=== PATIENT | female | born 1970 | race Caucasian/White ===

== ENCOUNTER → 2020-12-31 | Outpatient (CLI) | payer MEDICAID | LOC: COL.RAD 07:30 | DX: R94.5 Abnormal results of liver function studies (principal) ==

== ENCOUNTER → 2021-01-15 | Outpatient (CLI) | payer MEDICAID | LOC: MC.RAD 11:41 | DX: Z12.31 Encounter for screening mammogram for malignant neoplasm of breast (principal); N63.20 Unspecified lump in the left breast, unspecified quadrant ==

== ENCOUNTER → 2021-01-27 | Outpatient (CLI) | payer MEDICAID | LOC: MC.RAD 13:47 | DX: N63.11 Unspecified lump in the right breast, upper outer quadrant (principal) ==

== ENCOUNTER → 2021-07-30 | Outpatient (CLI) | payer MEDICAID | LOC: MC.RAD 08:22 | DX: N60.01 Solitary cyst of right breast (principal) ==

== ENCOUNTER → 2021-08-05 | Outpatient (CLI) | payer MEDICAID | LOC: MC.RAD 11:18 | DX: Z12.31 Encounter for screening mammogram for malignant neoplasm of breast (principal); Z01.818 Encounter for other preprocedural examination ==

== ENCOUNTER → 2022-01-26 | Outpatient (CLI) | payer OTHER | LOC: COL.RAD 15:00 | DX: R10.9 Unspecified abdominal pain (principal) ==

== ENCOUNTER 2023-12-13 22:52 | Emergency (ER) | payer SELFPAY ==
[~2023-12-13] VITALS: Ht 175.3 cm; Wt 84.1 kg
[2023-12-13 23:01] VITALS: TEMP 98.3
[2023-12-14] MEDS ORDERED: Home HYDROcodone/Acetaminophen 5/325 MG #4 TABS/PACK PO ONE (00:15)
[2023-12-14 00:38] VITALS: BP 155/92; PULSE 66
== END 2023-12-14 00:38 | disposition home or self-care (01) ==
LOC: COL.ER 22:52
DX: S50.12XA Contusion of left forearm, initial encounter (principal); V89.2XXA Person injured in unspecified motor-vehicle accident, traffic, initial encounter; Y92.410 Unspecified street and highway as the place of occurrence of the external cause

== ENCOUNTER 2023-12-18 15:12 | Emergency (ER) | payer OTHER ==
[~2023-12-18] VITALS: Ht 175.3 cm; Wt 81.8 kg
[2023-12-18] MEDS ORDERED: Ketorolac 60 MG/2 ML VIAL IM ONE (16:30)
[2023-12-18] MEDS ORDERED: Cyclobenzaprine 10 MG TAB PO ONE (16:45)
[2023-12-18] MEDS ORDERED: FLEXERIL 1010 MG/TAB PO (17:18)
[2023-12-18] MEDS ORDERED: Home Cyclobenzaprine 10 MG #2 TABS/PACK PO ONE (17:30)
[2023-12-18 17:33] VITALS: BP 157/90; PULSE 78; TEMP 98.2
== END 2023-12-18 17:33 | disposition home or self-care (01) ==
LOC: COL.ER 15:12
DX: S20.211A Contusion of right front wall of thorax, initial encounter (principal); M54.6 Pain in thoracic spine; V49.40XA Driver injured in collision with unspecified motor vehicles in traffic accident, initial encounter; Y92.410 Unspecified street and highway as the place of occurrence of the external cause
CPT/HCPCS: J1885

== ENCOUNTER 2023-12-27 10:38 | Emergency (ER) | payer OTHER ==
[~2023-12-27] VITALS: Ht 175.3 cm; Wt 85.5 kg
[~2023-12-27 10:38] MED LIST: FLEXERIL 1010 MG/TAB PO
[2023-12-27 10:49] VITALS: TEMP 98.2
[2023-12-27] MEDS ORDERED: Ketorolac 30 MG/ML VIAL IM ONE (11:45)
[2023-12-27] MEDS ORDERED: Cyclobenzaprine 10 MG TAB PO ONE (11:45)
[2023-12-27 13:00] VITALS: BP 150/107; PULSE 75
== END 2023-12-27 13:01 | disposition home or self-care (01) ==
LOC: COL.ER 10:38
DX: S09.90XA Unspecified injury of head, initial encounter (principal); M62.838 Other muscle spasm; V49.9XXA Car occupant (driver) (passenger) injured in unspecified traffic accident, initial encounter; Y92.410 Unspecified street and highway as the place of occurrence of the external cause
CPT/HCPCS: J1885